=== PATIENT | female | born 1955 | race Caucasian/White ===

== ENCOUNTER 2017-02-20 13:35 | Emergency (ER) | payer OTHER ==
[~2017-02-20] VITALS: Ht 165.1 cm; Wt 145.1 kg
[~2017-02-20 13:35] MED LIST: ASPI-COR81 M1 PO; Atrovent 0.03%30 ML NAS; B-COMPLEX1 CAP PO; BIOTIN10 MG PO; CIPROFLOXACIN500 MG PO; COREG; CYMBALTA; CYMBALTA20 MG PO; CYMBALTA60 MG PO; FISH OIL; FLAGYL500 MG PO; LANTUS100 U/ML; LANTUS100 U/ML SC; LASIX; LASIX40 MG PO; LEVAQUIN750 M1 PO; LINAGLIPTIN; LISINOPRIL; MEGACE40 MG PO; MELATONIN; METFORMIN1000 MG PO; NORVASC10 MG PO; OMEGA 3 FISH O1 EACH PO; PROAIR HFA8.5 GM INH; TOUJEO300 U/ML SC; VICODIN 5/500 505 MG PO; VICTOZA6 MG/ML SC
[2017-02-20 14:24] LABS: HEMOGLOBIN 11.5 g/dl (12.0-16.0); MEAN CELL VOLUME 88.9 fl (81.0-99.0); MEAN CORPUSCULAR HGB 28.4 pg (27.0-31.0); MEAN CORPUSCULAR HGB CONC 31.9 g/dl (33.0-37.0); MEAN PLATELET VOLUME 10.5 fl (9.6-12.3); PLATELET COUNT AUTOMATED 165 10*3/uL (130-400); RED BLOOD COUNT 4.05 10*6/uL (4.10-5.10); RED CELL DISTRI WIDTH 15.5 % (0-14.5); WHITE BLOOD COUNT 8.3 10*3/uL (4.8-10.8)
[2017-02-20 14:40] LABS: ALBUMIN 2.4 gm/dl (3.1-4.5); BILIRUBIN, TOTAL 0.4 mg/dl (0.2-1.0); POTASSIUM 3.8 mmol/L (3.5-5.1); TOTAL PROTEIN 7.2 gm/dL (6.4-8.2)
[2017-02-20 14:43] LABS: BASOPHIL # 0.1 10*3/uL (0-0.1); BASOPHILS 1 % (0-1); LYMPHOCYTE # 1.2 10*3/uL (1.3-4.4); MONOCYTE # 0.5 10*3/uL (0.1-1.0); NEUTROPHIL # 6.5 10*3/uL (2.3-7.9); NEUTROPHILS 78 % (47-73); PLATELET SUFFICIENCY NORMAL (NORMAL); TOTAL CELLS COUNTED 100 #CELLS
[2017-02-20] MEDS ORDERED: ULTRAM50 MG PO (15:18)
[2017-02-20] MEDS ORDERED: ZOVIRAX800 MG PO (15:18)
== END 2017-02-20 15:18 | disposition home or self-care (01) ==
LOC: ED 13:35
PROVIDERS: Nurse Practitioner Family
DX: B02.9 Zoster without complications (principal); Z98.890 Other specified postprocedural states; Z90.710 Acquired absence of both cervix and uterus; Z79.899 Other long term (current) drug therapy; Z79.82 Long term (current) use of aspirin; Z79.4 Long term (current) use of insulin; Z88.0 Allergy status to penicillin; Z88.2 Allergy status to sulfonamides; Z88.5 Allergy status to narcotic agent

== ENCOUNTER 2017-02-22 12:32 | Inpatient (IN) | payer OTHER ==
[~2017-02-22] VITALS: Ht 165.1 cm; Wt 158.4 kg
--- NOTE | ~2017-02-22 | EKG ---
[place], [place] ELECTROCARDIOGRAM REPORT NAME: RICHARD EM UNIT #: [id number] ROOM: [facility] DOCTOR: QUIN MEDLEY MD BIRTHDATE: [birth year] DOS: 02/22/2017 TIME: 1335 hours. FINDINGS: 1. Sinus rhythm with left anterior fascicular block. 2. Poor precordial R-wave progression. 3. Nonspecific T-wave flattening. 4. Abnormal electrocardiogram. QUIN MEDLEY MD CM:EKGRPT:ELECTROCARDIOGRAM REPORT 34 23 QUIN MEDLEY MD
[~2017-02-22 12:32] MED LIST changes: +ULTRAM50 MG PO; +ZOVIRAX800 MG PO
[2017-02-22 12:47] VITALS: BP 137/75
[2017-02-22 13:45] LABS: BASO % 0.2 % (0.0-1.0); EOS # 0.1 10*3/uL (0.0-0.4); EOS % 0.8 % (1.0-4.0); HEMATOCRIT 34.5 % (37.0-47.0); HEMOGLOBIN 11.3 g/dl (12.0-16.0); IG # 0.1 10*3/uL (0.0-0.1); LYMPH # 1.2 10*3/uL (1.3-4.4); MEAN CELL VOLUME 87.1 fl (81.0-99.0); MEAN CORPUSCULAR HGB 28.5 pg (27.0-31.0); MEAN CORPUSCULAR HGB CONC 32.8 g/dl (33.0-37.0); MEAN PLATELET VOLUME 10.5 fl (9.6-12.3); MONO # 0.9 10*3/uL (0.1-1.0); MONO % 7.6 % (3.0-9.0); NEUT # 9.7 10*3/uL (2.3-7.9); NEUT % 80.6 % (47.0-73.0); NUCLEATED RED BLOOD CELL 0.2 % (0.0-0.0); PLATELET COUNT AUTOMATED 242 10*3/uL (130-400); RED BLOOD COUNT 3.96 10*6/uL (4.10-5.10); RED CELL DISTRI WIDTH 15.2 % (0-14.5); WHITE BLOOD COUNT 12.1 10*3/uL (4.8-10.8)
[2017-02-22 13:56] LABS: ALBUMIN 2.3 gm/dl (3.1-4.5); ALKALINE PHOSPHATASE 207 U/L (45-117); BILIRUBIN, TOTAL 0.6 mg/dl (0.2-1.0); BUN 10 mg/dl (7-24); CARBON DIOXIDE 28 mmol/L (21-32); CHLORIDE 98 mmol/L (98-107); EST GLOM FILT AFRICAN AMERICAN > 60 ml/min; GLUCOSE 236 mg/dL (65-99); MAGNESIUM 1.6 mg/dL (1.5-2.1); POTASSIUM 3.6 mmol/L (3.5-5.1); SGOT/AST 69 IU/L (3-35); SGPT/ALT 46 U/L (12-78); SODIUM 137 mmol/L (136-145); TOTAL PROTEIN 7.5 gm/dL (6.4-8.2)
[2017-02-22 14:09] LABS: TROPONIN I < 0.015 ng/ml (<0.045)
[2017-02-22 15:46] VITALS: BP 141/70
[2017-02-22 16:00] VITALS: BP 169/87
[2017-02-22] MEDS ORDERED: CYCLOBENZAPRINE10 MG PO (16:12)
[2017-02-22] MEDS ORDERED: POTASSIUM CHLO20 ME3 PO (16:15)
[2017-02-22 16:20] VITALS: BP 169/87
[2017-02-22 19:01] LABS: CKMB 1.5 ng/ml (0.5-3.6); CPK 122 U/L (26-192)
[2017-02-22 19:04] LABS: TROPONIN I < 0.015 ng/ml (<0.045)
[2017-02-22 20:00] VITALS: BP 132/88; BP 132/91
[2017-02-23] VITALS: BP 138/88
[2017-02-23 00:32] LABS: CKMB 1.6 ng/ml (0.5-3.6); CPK 113 U/L (26-192)
[2017-02-23 00:34] LABS: TROPONIN I < 0.015 ng/ml (<0.045)
[2017-02-23 06:14] LABS: BASO % 0.1 % (0.0-1.0); HEMATOCRIT 36.3 % (37.0-47.0); HEMOGLOBIN 11.7 g/dl (12.0-16.0); IG # 0.2 10*3/uL (0.0-0.1); LYMPH # 0.9 10*3/uL (1.3-4.4); LYMPH % 7.5 % (27.0-41.0); MEAN CELL VOLUME 88.3 fl (81.0-99.0); MEAN CORPUSCULAR HGB 28.5 pg (27.0-31.0); MEAN CORPUSCULAR HGB CONC 32.2 g/dl (33.0-37.0); MEAN PLATELET VOLUME 10.2 fl (9.6-12.3); MONO # 0.6 10*3/uL (0.1-1.0); MONO % 5.2 % (3.0-9.0); NEUT # 10.6 10*3/uL (2.3-7.9); NEUT % 85.6 % (47.0-73.0); NUCLEATED RED BLOOD CELL 0.2 % (0.0-0.0); PLATELET COUNT AUTOMATED 282 10*3/uL (130-400); RED BLOOD COUNT 4.11 10*6/uL (4.10-5.10); RED CELL DISTRI WIDTH 15.4 % (0-14.5); WHITE BLOOD COUNT 12.4 10*3/uL (4.8-10.8)
[2017-02-23 06:27] LABS: CKMB 1.8 ng/ml (0.5-3.6); CPK 101 U/L (26-192)
[2017-02-23 06:40] LABS: TROPONIN I < 0.015 ng/ml (<0.045)
[2017-02-23 06:42] LABS: BUN 15 mg/dl (7-24); CARBON DIOXIDE 33 mmol/L (21-32); CHLORIDE 97 mmol/L (98-107); CHOLESTEROL 184 mg/dL (<200); EST GLOM FILT AFRICAN AMERICAN > 60 ml/min; FREE T4 1.48 ng/dl (0.76-1.46); GLUCOSE 372 mg/dL (65-99); HDL CHOLESTEROL 50 mg/dl (40-60); LDL CHOLESTEROL 117 mg/dL (9-159); MAGNESIUM 1.8 mg/dL (1.5-2.1); PHOSPHOROUS 3.5 mg/dL (2.5-4.9); POTASSIUM 3.6 mmol/L (3.5-5.1); SODIUM 137 mmol/L (136-145); TRIGLYCERIDES 86 mg/dl (<150); VLDL CHOLESTEROL 17 mg/dL (6-40)
[2017-02-23 06:49] LABS: THYROID STIM HORMONE (HS) 0.455 uIU/ml (0.358-4.75)
[2017-02-23 07:03] LABS: HEMOGLOBIN A1c 9.1 % (4.8-5.6)
[2017-02-23 08:00] VITALS: BP 132/74
== END 2017-02-23 11:03 | disposition left against medical advice (07) | DRG 291 ==
LOC: ED 12:32 → EDHOLD 15:04 → 5E 15:32
PROVIDERS: Internal Medicine; Nurse Practitioner Family
DX: I11.0 Hypertensive heart disease with heart failure (principal); E43 Unspecified severe protein-calorie malnutrition; Z68.43 Body mass index [BMI] 50.0-59.9, adult; B02.9 Zoster without complications; E11.65 Type 2 diabetes mellitus with hyperglycemia; E66.01 Morbid (severe) obesity due to excess calories; F32.9 Major depressive disorder, single episode, unspecified; Z85.42 Personal history of malignant neoplasm of other parts of uterus; Z90.710 Acquired absence of both cervix and uterus; Z82.49 Family history of ischemic heart disease and other diseases of the circulatory system; Z88.0 Allergy status to penicillin; Z88.1 Allergy status to other antibiotic agents; Z88.5 Allergy status to narcotic agent; Z88.2 Allergy status to sulfonamides; I50.9 Heart failure, unspecified; D72.820 Lymphocytosis (symptomatic); D64.9 Anemia, unspecified

== ENCOUNTER → 2018-10-12 | Outpatient (CLI) | payer OTHER ==
[~2018-10-12] MED LIST changes: +CYCLOBENZAPRINE10 MG PO; +POTASSIUM CHLO20 ME3 PO
== END | disposition home or self-care (01) ==
LOC: WOUNDCARE 02:14
DX: I87.311 Chronic venous hypertension (idiopathic) with ulcer of right lower extremity (principal); L97.211 Non-pressure chronic ulcer of right calf limited to breakdown of skin; L97.312 Non-pressure chronic ulcer of right ankle with fat layer exposed; I10 Essential (primary) hypertension; E66.01 Morbid (severe) obesity due to excess calories; Z68.43 Body mass index [BMI] 50.0-59.9, adult

== ENCOUNTER → 2018-12-25 | Outpatient (CLI) | payer OTHER ==
[~2018-12-25] MED LIST changes: +ATIVAN0.5 MG PO; +BUMETANIDE1 MG PO; +CIPRO PO; +DIGOX125 MCG PO; +DOXYCYCLINE100 MG PO; +LISINOPRIL5 MG PO; +METOPROLOL SUCC50 M1 PO; +Percocet 325 MG1 TAB PO; +TOUJEO MAX300 UNIT/1 SQ; -TOUJEO300 U/ML SC; +XARELTO15 M1 PO
== END | disposition home or self-care (01) ==
LOC: WOUNDCARE 02:06
DX: I87.313 Chronic venous hypertension (idiopathic) with ulcer of bilateral lower extremity (principal); E11.621 Type 2 diabetes mellitus with foot ulcer; L97.412 Non-pressure chronic ulcer of right heel and midfoot with fat layer exposed; L97.422 Non-pressure chronic ulcer of left heel and midfoot with fat layer exposed; E11.622 Type 2 diabetes mellitus with other skin ulcer; L97.211 Non-pressure chronic ulcer of right calf limited to breakdown of skin; L97.311 Non-pressure chronic ulcer of right ankle limited to breakdown of skin; I10 Essential (primary) hypertension; E66.01 Morbid (severe) obesity due to excess calories; Z90.710 Acquired absence of both cervix and uterus; Z68.43 Body mass index [BMI] 50.0-59.9, adult

== ENCOUNTER 2019-03-29 20:26 | Emergency (ER) | payer OTHER ==
[~2019-03-29] VITALS: Ht 165.1 cm; Wt 112.5 kg
--- NOTE | ~2019-03-29 | EKG ---
[place], [place] ELECTROCARDIOGRAM REPORT NAME: RICHARD EM UNIT #: [id number] ROOM: DOCTOR: EPIPHANY DRAFT REPORT BIRTHDATE: [birth year] [facility] Test Date: 2019-03-29 Test Time: 20:52:49 Pat Name: RICHARD EM Department: Room: Gender: F Preparation Operator: : 1955 Requested By: MARGARET SAUCEDO DNP Order Number: [id number] Reading MD: Ho Bonner MD Measurements Intervals [place] Rate: 81 P: [place]: QRS: -55 QRSD: 143 T: 119 QT: 428 QTc: 497 Interpretive Statements Atrial fibrillation Nonspecific IVCD with LAD Inferior infarct, old Artifact in lead(s) I,II,III,aVR,aVL,aVF,V1,V2 Compared to ECG 02/14/2019 07:46:45 Intraventricular conduction delay now present Myocardial infarct finding now present Left bundle-branch block no longer present Electronically Signed On 03-30-2019 4:15:43 PDT by Ho Bonner MD CM:EKGRPT:ELECTROCARDIOGRAM REPORT 51 [id number] MARGARET SAUCEDO DNP EPIPHANY DRAFT REPORT MARGARET SAUCEDO DNP
[~2019-03-29 20:26] MED LIST changes: -CIPRO PO
[2019-03-29 21:17] LABS: BASO # 0.1 10*3/uL (0.0-0.1); BASO % 0.6 % (0.0-1.0); EOS # 1.1 10*3/uL (0.0-0.4); EOS % 7.8 % (1.0-4.0); HEMATOCRIT 29.1 % (37.0-47.0); HEMOGLOBIN 8.7 g/dl (12.0-16.0); LYMPH # 1.3 10*3/uL (1.3-4.4); LYMPH % 9.2 % (27.0-41.0); MEAN CELL VOLUME 85.3 fl (81.0-99.0); MEAN CORPUSCULAR HGB 25.5 pg (27.0-31.0); MEAN CORPUSCULAR HGB CONC 29.9 g/dl (33.0-37.0); MEAN PLATELET VOLUME 9.6 fl (9.6-12.3); MONO # 0.8 10*3/uL (0.1-1.0); MONO % 5.4 % (3.0-9.0); NEUT # 10.7 10*3/uL (2.3-7.9); NEUT % 76.6 % (47.0-73.0); PLATELET COUNT AUTOMATED 420 10*3/uL (130-400); RED BLOOD COUNT 3.41 10*6/uL (4.10-5.10); RED CELL DISTRI WIDTH 18.4 % (0-14.5)
[2019-03-29 21:33] LABS: ALBUMIN 1.9 gm/dl (3.1-4.5); ALKALINE PHOSPHATASE 112 U/L (45-117); BUN 64 mg/dl (7-24); CHLORIDE 101 mmol/L (98-107); CREATININE 2.26 mg/dL (0.55-1.02); LIPASE 113 U/L (73-393); POTASSIUM 3.6 mmol/L (3.5-5.1); SGOT/AST 16 IU/L (3-35); SODIUM 138 mmol/L (136-145); TOTAL PROTEIN 8.4 gm/dL (6.4-8.2)
[2019-03-29 21:36] LABS: SGPT/ALT < 6 U/L (12-78); TROPONIN I < 0.015 ng/ml (<0.045)
[2019-03-29 21:37] LABS: ACT PARTIAL THROMBO TIME 31.1 SECONDS (20.0-32.1); INTERNATIONAL NORM RATIO 1.1 (2.0-3.5)
[2019-05-21] MEDS ORDERED: LASIX40 MG PO (09:08)
[2019-05-21] MEDS ORDERED: FLAGYL500 MG PO (09:10)
[2019-05-21] MEDS ORDERED: CIPRO PO (09:10)
== END 2019-03-29 23:59 | disposition left against medical advice (07) ==
LOC: ED 20:26
PROVIDERS: Nurse Practitioner Family
DX: S01.01XA Laceration without foreign body of scalp, initial encounter (principal); N17.9 Acute kidney failure, unspecified; R42 Dizziness and giddiness; I48.91 Unspecified atrial fibrillation; I11.0 Hypertensive heart disease with heart failure; I50.9 Heart failure, unspecified; E11.9 Type 2 diabetes mellitus without complications; Z88.0 Allergy status to penicillin; Z88.2 Allergy status to sulfonamides; Z91.048 Other nonmedicinal substance allergy status; Z88.5 Allergy status to narcotic agent; Z88.1 Allergy status to other antibiotic agents; Z88.8 Allergy status to other drugs, medicaments and biological substances; Z79.4 Long term (current) use of insulin; Z79.899 Other long term (current) drug therapy; Z90.710 Acquired absence of both cervix and uterus; W18.39XA Other fall on same level, initial encounter; Y93.89 Activity, other specified; Y92.090 Kitchen in other non-institutional residence as the place of occurrence of the external cause; Y99.8 Other external cause status

== ENCOUNTER → 2019-05-21 | Outpatient (CLI) | payer OTHER ==
[2019-05-21] VITALS (9 sets, daily range): BP systolic 105–130; BP diastolic 50–73
[~2019-05-21] MED LIST changes: +CIPRO PO
== END | disposition home or self-care (01) ==
LOC: TRNFUSION 00:31
DX: D64.9 Anemia, unspecified (principal)

== ENCOUNTER 2019-09-06 16:25 | Inpatient (IN) | payer OTHER ==
[~2019-09-06] VITALS: Ht 165.1 cm; Wt 126.8 kg
[2019-09-06] VITALS (26 sets, daily range): BP systolic 75–120; BP diastolic 31–98
--- NOTE | ~2019-09-06 | CON ---
[place], [place] REPORT OF CONSULTATION NAME: RICHARD EM [facility] #: [id number] UNIT #: [id number] ROOM: [facility] DOCTOR: AWA LICEA,CADEN BIRTHDATE: [birth year] DOS: 09/07/2019 REASON FOR CONSULTATION: Hypotension, atrial fibrillation. HISTORY OF PRESENT ILLNESS: The patient is a 64-year-old patient with history of persistent atrial fibrillation, diabetes, chronic kidney disease, heart failure, presented to the hospital after she had unwitnessed fall at home. She was admitted because of hypotensive shock due to sepsis and also atrial fibrillation. The patient was slightly drowsy and slightly confused and the history was obtained from the chart and nursing staff. There is no family at bedside. Apparently, there is no chest pain or palpitations at home. No orthopnea or PND. No palpitations, but the patient did have some short of breath. REVIEW OF SYSTEMS: Review of 10 systems is limited due to the patient's condition and history and symptoms were obtained from the chart. PAST MEDICAL HISTORY: 1. Paroxysmal atrial fibrillation. 2. Chronic kidney disease. 3. Hypertension. 4. Systolic heart failure. 5. Chronic venous stasis dermatitis. 6. Diabetes type 2. 7. Uterine cancer. PAST SURGICAL HISTORY: History of cataract surgery, hysterectomy and . SOCIAL HISTORY: The patient does not smoke, does not drink, does not use illicit drugs. FAMILY HISTORY: Nil contributory due to her age. Father at the age of 69 from heart failure, had a history of CAD and bypass surgery. Mother has heart failure and renal failure and at age of 64. ALLERGIES: Reviewed. HOME MEDICATIONS: Reviewed. PHYSICAL EXAMINATION: VITAL SIGNS: Blood pressure 103/44, heart rates are between 110-120, respiratory rate 18, weight 126.8 kg, BMI 46.3. GENERAL: Alert, comfortable, in no acute distress. The patient is drowsy and sleeping. NECK: No distention, no carotid bruit. CHEST: Symmetrical. LUNGS: A few scattered rhonchi. Fair air entry bilaterally. HEART: Irregularly irregular, grade 1/6 systolic murmur. ABDOMEN: Obese, nontender. Bowel sounds normal. EXTREMITIES: Showed trace 2+ plus edema with some erythema and also positive [place], [place] REPORT OF CONSULTATION NAME: RICHARD EM UNIT #: [id number] ROOM: [facility] DOCTOR: AWA LICEA,CADEN BIRTHDATE: [birth year] mild cellulitis. Distal pulses are unable to palpate. SKIN: Warm and moist. No cyanosis. NEUROLOGIC: Unable to assess due to the patient's mental status. RECTAL: Deferred. GENITOURINARY: Deferred. PSYCHIATRIC: Unable to assess due to the patient's mental status. REVIEW OF THE DIAGNOSTIC TESTS: EKG, CBC, chemistry and imaging studies reviewed. WBC was , hemoglobin is 12.9, platelet 101,000. INR 2.1, creatinine 3.95. Her digoxin levels are 2.38. Cardiac troponins are negative x 2. IMPRESSION: 1. Hypotensive shock, likely due to sepsis. 2. Fall, unwitnessed, no true syncope. 3. Atrial fibrillation with occasional rapid ventricular rate. 4. Chronic systolic heart failure with ejection fraction 40%. 5. Acute on chronic kidney disease. 6. Bilateral cellulitis. RECOMMENDATIONS: 1. Continue inotropic support and wean as her blood pressure tolerates. 2. The patient received digoxin last night. Currently, her digoxin levels are high. Hence, I would like to hold on giving any further digoxin. 3. The patient was not on anticoagulation at home due to high risk of bleeding. 4. A 2D echo was ordered and pending. 5. Overall prognosis is poor. The patient's condition is critical. 6. No family at bedside at the time of my examination. 7. Resume her home cardiac medications as her blood pressure tolerates. 8. No further cardiac testing except the 2D echo at this time. CADEN BILLINGS MD CM:CONSTR:REPORT OF CONSULTATION 29 09/08/19821 interface
--- NOTE | ~2019-09-06 | EKG ---
[place], [place] ELECTROCARDIOGRAM REPORT NAME: RICHARD EM UNIT #: [id number] ROOM: [facility] DOCTOR: OSWALDO DRAFT REPORT BIRTHDATE: [birth year] [facility] Test Date: 2019-09-06 Test Time: 17:31:14 Pat Name: RICHARD EM Department: Room: [facility] Gender: F Director Risk: : 1955 Requested By: MIREYA GREWAL Order Number: [id number] Reading MD: Florentino Schaffer Measurements Intervals [place] Rate: 92 P: SD: QRS: 263 QRSD: 139 T: QT: 454 QTc: 562 Interpretive Statements Atrial fibrillation Nonspecific IVCD with LAD Anterior infarct, old Nonspecific T abnormalities, lateral leads Minimal ST elevation, lateral leads Compared to ECG 03/29/2019 20:52:49 T-wave abnormality now present ST (T wave) deviation now present Myocardial infarct finding still present Electronically Signed On 09-08-2019 9:34:00 PST by Florentino Schaffer CM:EKGRPT:ELECTROCARDIOGRAM REPORT 1731 0934 MIREYA CHACON DRAFT REPORT MIREYA GREWAL MD
--- NOTE | ~2019-09-06 | EKG ---
[place], [place] ELECTROCARDIOGRAM REPORT NAME: RICHARD EM UNIT #: [id number] ROOM: [facility] DOCTOR: OSWALDO DRAFT REPORT BIRTHDATE: [birth year] [facility] Test Date: 2019-09-07 Test Time: 06:31:46 Pat Name: RICHARD EM Department: Room: [place] [address] Gender: F Box Office Attendant: Aminah Krishna : 1955 Requested By: KATTY GRAJEDA Order Number: [id number] Reading MD: Florentino Schaffer Measurements Intervals [place] Rate: 127 P: 65 MT: 106 QRS: -77 QRSD: 136 T: 116 QT: 345 QTc: 502 Interpretive Statements Sinus tachycardia Nonspecific IVCD with LAD Inferior infarct, old Extensive anterior infarct, old Compared to ECG 03/29/2019 20:52:49 Atrial fibrillation no longer present Myocardial infarct finding still present Electronically Signed On 09-08-2019 9:37:42 PST by Florentino Schaffer CM:EKGRPT:ELECTROCARDIOGRAM REPORT 0631 0937 KATTY MOLINA DRAFT REPORT KATTY GRAJEDA DO
--- NOTE | ~2019-09-06 | PROC NOTE ---
[place], [place] PROCEDURE NOTE NAME: [facility] [id number] UNIT #: [id number] ROOM: [facility] DOCTOR: FROY NAVA DO BIRTHDATE: [birth year] DOS: 09/07/2019 PROCEDURE: Arterial line placement. PROCEDURE NOTE: This is a 64-year-old female, currently admitted on the hospitalist service, being treated for septic shock. I was consulted to insert an arterial line for better blood pressure monitoring and arterial line was placed in the right radial artery under ultrasound guidance. Sterile technique was maintained. There were no complications during the procedure. FROY NAVA DO CM:PROCNOTE:PROCEDURE NOTE 1048 [id number] FROY NAVA DO
--- NOTE | ~2019-09-06 | EKG ---
[place], [place] ELECTROCARDIOGRAM REPORT NAME: RICHARD EM UNIT #: [id number] ROOM: [facility] DOCTOR: OSWALDO DRAFT REPORT BIRTHDATE: [birth year] [facility] Test Date: 2019-09-06 Test Time: 19:08:06 Pat Name: RICHARD EM Department: Room: [place] [address] Gender: F Medical [facility] Health Services Manager: : 1955 Requested By: CHRISTINE SIMEON Order Number: [id number] Reading MD: Florentino Schaffer Measurements Intervals [place] Rate: 93 P: [place]: QRS: 244 QRSD: 118 T: 97 QT: 386 QTc: 481 Interpretive Statements Atrial fibrillation LAD, consider left anterior fascicular block Anterolateral infarct, age indeterminate Baseline wander in lead(s) V1 Compared to ECG 03/29/2019 20:52:49 Intraventricular conduction delay no longer present Myocardial infarct finding still present Electronically Signed On 09-08-2019 9:34:47 PST by Florentino Schaffer CM:EKGRPT:ELECTROCARDIOGRAM REPORT [id number] CHRISTINE CHACON DRAFT REPORT CHRISTINE SIMEON
--- NOTE | ~2019-09-06 | CON ---
[place], [place] REPORT OF CONSULTATION NAME: RICHARD EM [facility] #: [id number] UNIT #: [id number] ROOM: [facility] DOCTOR: NOMAN DECKER MD BIRTHDATE: [birth year] DOS: 09/07/2019 PULMONARY CONSULTATION, EVALUATION, AND MANAGEMENT CONSULTATION REQUESTED BY: Hospitalist services. REASON FOR CONSULTATION: For assessment of the hypotension, change in mental status and others. History is limited from the patient could not be accurately obtained due to the current ongoing medical illnesses. The majority of the history obtained with medical record, this hospitalization and previous records review. HISTORY OF PRESENT ILLNESS: This is a 64-year-old white female patient who has been known with multiple medical problems. The patient in the past has been brought to the hospital as the patient has been noted with progressive confusional status with increased sleepiness. The patient has been brought to the hospital for further assessment. Upon assessment, she has been noted with hyperglycemia as well. The blood glucose has been reported ____as well. She has been noted with hypotension and has been treated with intravenous flow, lactic acid was also noted elevated. She has been given the norepinephrine and later vasopressin therapy was added to the treatment. This morning, the patient has been noted comfortably resting on the bed with the need of oxygen supplementation 3 liters nasal cannula. She does open her eyes to vocal commands, but does not have good verbal communication to understand the questions or answer the questions. Not noted with any distress. The patient has tachypnea, has not been noted any audible wheezing or symptoms of cough. REVIEW OF SYSTEMS: Could not be completed since the patient is noted with current change in mental status. PAST MEDICAL HISTORY: Noted, 1. History of permanent atrial fibrillation. 2. The patient with chronic venous stasis pigmentation of the lower extremity. 3. Chronic kidney disease. 4. Morbid obesity. 5. Type 2 diabetes mellitus. 6. History of reported hypercoagulable status, details unknown. 7. History of heart failure with reduced ejection fraction noted a left ventricular ejection fraction, global hypokinesia in 03/2019 echocardiogram. 8. History of uterine cancer. PAST SURGICAL HISTORY: Reported as; 1. Complete hysterectomy. 2. Cataract extraction with lens implantation. 3. [place] teeth removal. 4. . SOCIAL HISTORY: The patient lives at home. She has not reported any history of tobacco, alcohol or illicit drugs. [place], [place] REPORT OF CONSULTATION NAME: RICHARD EM UNIT #: [id number] ROOM: [facility] DOCTOR: NATALIYA TAMAYO MD,NOMAN BIRTHDATE: [birth year] FAMILY HISTORY: The patient's father with complications of coronary artery disease. The mother as well with complications of congestive heart failure and renal failure. HOME MEDICATIONS: Listed as Percocet, Flexeril, doxepin, Cymbalta, Lasix 40 mg daily, lisinopril, lorazepam, metoprolol, metronidazole, and Xarelto. CURRENT MEDICATIONS: Which were administered at this hospitalization were noted as norepinephrine, vasopressin, IV meropenem, vancomycin, and some other medications. DRUG ALLERGIES: REPORTED : 1. PENICILLIN. 2. SULFA DRUGS. 3. KEFLEX. 4. ELAVIL. 5. CODEINE. PHYSICAL EXAMINATION: GENERAL: This is a 64-year-old female patient who has been noted with opening her eyes to vocal with commands, otherwise keep her eyes closed without any distress in the ICU. The height recorded by the nursing staff on admission 5 feet 5 inches, weight of 279 pounds, BMI of 46.5. VITAL SIGNS: For the patient, which have been recorded on this admission were noted as normal temperature since admission, respiratory rate ranged between 14-20. Heart rate noted with tachycardia ranging between 130 - 118. The blood pressure ranges between ____. The last mean pressure was recorded as 70, at about 9:15. HEENT: Severe dryness of oral mucosa was noted. NECK: Supple. Head was atraumatic. CARDIOVASCULAR SYSTEM: S1, S2 is audible. LUNGS: Noted decreased breath sounds in the lungs bilaterally. There were no wheezing or crackles. ABDOMEN: Soft with chronic morbid obesity. Bowel sounds present. There was no tenderness. EXTREMITIES: Noted severe redness of the lower extremities bilaterally with severe edema as well with some open areas as well. MUSCULOSKELETAL: Without acute deformities. CENTRAL NERVOUS SYSTEM: Limited exam. Assessment with the changes in mental status noted. LABORATORY DATA: PTT on 09/06/2019 were noted 65, which was elevated. The CMP noted as BUN 53 and creatinine 3.94. AST was noted with mildly elevated at 46, alkaline phosphatase 279 with albumin 1.4. Anion gap was noted as 17. Lactic acid 3.6, variably elevated later on. The PT/INR were noted 2.1 as well that was done yesterday on admission CBC that was done later on, WBC count 23.8, hemoglobin and hematocrit normal, platelet count 89,000. Troponins were noted as normal 3 sets. Chest x-ray shows evidence of elevation of right hemidiaphragm, pleural fluid noted with increased interstitial edema. Blood culture, which was done on 09/06/2019, the patient noted gram-positive cocci in [place], [place] REPORT OF CONSULTATION NAME: RICHARD EM UNIT #: [id number] ROOM: [facility] DOCTOR: NATALIYA TAMAYO MD,NOMAN BIRTHDATE: [birth year] pairs and chains. CBC that was done on 09/07/2019; WBC count 34.7, hemoglobin and hematocrit normal, platelet count 110,000. CT scan of the abdomen and pelvis was also completed on this patient in the Emergency Room and the finding was reported as evidence of pleural fluid, area of compression atelectasis lower lungs. The findings of the abdomen was reported diffuse edema, retroperitoneal and pelvic adenopathy new since as compared with the previous examination. Nonobstructive right nephrolithiasis, hepatic steatosis and splenomegaly was also reported. Comparison of the CT scan was done 10/04/2012. A CT scan of the chest that was just completed. I did review at 8:25 a.m. noted with findings of moderate to large right pleural fluid and small left pleural fluid, area of compression atelectasis. IMPRESSION: 1. The patient will be currently admitted to the hospital with change in mental status, multifactorial, possibility of elevation of CO2 with metabolic acidosis causing confusion, sepsis with Gram-positive cocci bacteremia was also noted. 2. The patient with anasarca picture congestive heart failure with acute heart failure with reduced ejection fraction as well. 3. Lactic acidosis, multifactorial hypoperfusion related with history of heart failure, reduced ejection fraction, possibly some related to sepsis as well. 4. Mild relative hypoglycemia, most likely occurring because of the current acute sepsis. The patient had hypoperfusion. 5. Morbid obesity. 6. Large pleural fluid was noted compression atelectasis. 7. History of past Clostridium difficile colitis. 8. Elevated anion gap related to the lactic acidosis as well. 9. Source of the current gram-positive cocci in pair, which were noted, would be considered as Enterococcus, source could be considered from the skin, GI tract or urogenital tract. 10. Morbid obesity with clinical suspicion of obstructive sleep apnea disorder as well, which has not been previously diagnosed. 11. History of type 2 diabetes mellitus. 12. Acute kidney injury related multifactorial. The patient with hypoperfusion, sepsis and congestive heart failure combination. 13. Abnormal coagulopathy related to Xarelto with a drug toxicity with elevated level because of the acute kidney injury would be considered very likely cause of coagulopathy. 14. Lymphadenopathy noted in the retroperitoneal area, rule out malignancy, lymphoma. Other etiology later on as well after discharge from the hospital. PLAN OF MANAGEMENT: Minimize the use of the antibiotic as well based on the culture results. Follow the culture results and de-escalation of antibiotic should be done. Vancomycin should be considered for the continued for the current bacteremia. Urine culture should be obtained. Arterial blood gas was ordered to assess the acid-base disorder as well and rule out hypercapnia. If the patient will be noted hypercapnia certainly BiPAP would be started. Close monitoring of the patient's multiorgan system failure as well. The patient's condition is considered very critical at the present time with current ongoing several illnesses. Usual care. Cardiology consultation will be necessary. Diurese the patient could be considered with close monitoring of BUN and [place], [place] REPORT OF CONSULTATION NAME: RICHARD EM UNIT #: [id number] ROOM: [facility] DOCTOR: NATALIYA TAMAYO MD,NOMAN BIRTHDATE: [birth year] creatinine, also obtain Nephrology services consultation, continuing and not restart as Xarelto as well. Monitor for any abnormal bleeding. Supportive care. Total time pulmonary care critical care evaluation and management noted the patient was 45 minutes. NOMAN AN MD CM:CONSTR:REPORT OF CONSULTATION 1057 09/07/19 2125 interface
[~2019-09-06 16:25] MED LIST changes: +PERCOCET 10-321 EACH PO; -Percocet 325 MG1 TAB PO
--- NOTE | 2019-09-06 16:30 | NUR ---
NURSE REPORT TO AWAIS FOR CONTINUATION OF CARE.
--- NOTE | 2019-09-06 16:45 | NUR ---
REPEAT BSBS *AFTER* AN ORAL GLUCOSE AND CONTAINER OF O.J. HERE IS 38. PRIOR ONE WAS 43. AFTER MULTIPKLE ATTEMPTS, IV INSERTION WAS SUCCESSFUL AND IV DEXTROSE ORDER NOW RECEIVED. PT ATTACHED TO ALL MONITORING DEVICES. NO CHANGE IN MENTAL STATUS OR COMPLAINT.
--- NOTE | 2019-09-06 17:14 | NUR ---
BG 76 DR. GREWAL MADE AWARE
--- NOTE | 2019-09-06 17:45 | NUR ---
BG RECHECKED 48 DR -CARMINA MADE AWARE AND ORDERING ANOTHER AMP OF DEXTROSE
[2019-09-06 18:00] LABS: ALBUMIN 1.4 gm/dl (3.1-4.5); ALKALINE PHOSPHATASE 279 U/L (45-117); BUN 53 mg/dl (7-24); CHLORIDE 104 mmol/L (98-107); CREATININE 3.94 mg/dL (0.55-1.02); POTASSIUM 3.7 mmol/L (3.5-5.1); SGOT/AST 46 IU/L (3-35); SGPT/ALT 6 U/L (12-78); SODIUM 136 mmol/L (136-145); TOTAL PROTEIN 6.4 gm/dL (6.4-8.2)
[2019-09-06 18:08] LABS: TROPONIN I < 0.015 ng/ml (<0.045)
--- NOTE | 2019-09-06 18:24 | NUR ---
BG CHECKED 72 DR CARMINA AT BEDSIDE AND AWARE
[2019-09-06 18:28] LABS: INTERNATIONAL NORM RATIO 2.1 (2.0-3.5)
[2019-09-06 19:00] LABS: HEMATOCRIT 37.8 % (37.0-47.0); MEAN CELL VOLUME 85.7 fl (81.0-99.0); MEAN CORPUSCULAR HGB 27.2 pg (27.0-31.0); MEAN CORPUSCULAR HGB CONC 31.7 g/dl (33.0-37.0); PLATELET COUNT AUTOMATED 89 10*3/uL (130-400); RED BLOOD COUNT 4.41 10*6/uL (4.10-5.10); RED CELL DISTRI WIDTH 18.8 % (0-14.5); WHITE BLOOD COUNT 23.8 10*3/uL (4.8-10.8)
[2019-09-06 19:04] LABS: TOTAL CELLS COUNTED 100 #CELLS
[2019-09-06 19:05] LABS: TOXIC GRANULATION SLIGHT; VACUOLATION OF NEUTROPHILS SLIGHT
[2019-09-06 19:06] LABS: PLATELET SUFFICIENCY LOW (NORMAL)
--- NOTE | 2019-09-06 20:13 | NUR ---
levophed titrated to 8mcg/min. bp 75/35
--- NOTE | 2019-09-06 20:35 | NUR ---
TITRATED LEVEPHED TO 12 MCG/MIN BP 79/44
--- NOTE | 2019-09-06 20:45 | NUR ---
PER SISTER DM AND PT REFUSING MORE PICTURES TO BE TAKEN. PT HAVING A LOT OF PAIN AND DOES NOT WANT MORE PHOTOS
--- NOTE | 2019-09-06 21:40 | NUR ---
A 64, admitted to [facility]U, under the services of KATTY Quintero DO with a diagnosis of Septic shock. Chief complaint is weakness, low blood sugar, fall, leg wounds. Patient arrived via stretcher from ER. Monitor applied. Initial assessment completed. Vital signs taken and recorded. KATTY QUINTERO DO notified of admission to the unit. Orders received. See assessment for past medical history, medications and allergies. Patient and/or family oriented to unit. [facility] visitation policy reviewed. Clothing/patient valuable form completed. MARIAMA MATHUR
--- NOTE | 2019-09-06 22:15 | NUR ---
ATTEMPTING TO EXAMINE WOUNDS AND BUTTOCKS ARE MET WITH RESISTANCE PT IS YELLING AND PUSHING AGAINST RAILS WHILE SAYING "NO, LEAVE ME ALONE." WILL ATTEMPT REASSESSMENT LATER.
[2019-09-06] MEDS ORDERED: VANCOMYCIN HCL250 MG PO (22:23)
[2019-09-06] MEDS ORDERED: LORAZEPAM0.5 MG PO (22:24)
--- NOTE | 2019-09-06 22:24 | NUR ---
DR BILLINGS'S ANSWERING SERVICE GIVEN INFORMATION FOR CONSULT.
[2019-09-06] MEDS ORDERED: FUROSEMIDE40 MG PO (22:25)
[2019-09-06] MEDS ORDERED: PANTOPRAZOLE SO40 MG PO (22:25)
[2019-09-06] MEDS ORDERED: DIGOXIN125 MCG PO (22:26)
--- NOTE | 2019-09-06 22:28 | NUR ---
DR AN NOTIFIED OF CONSULT. NO NEW ORDERS RECEIVED.
[2019-09-06] MEDS ORDERED: CYMBALTA60 MG PO (22:29)
[2019-09-06] MEDS ORDERED: ASPIRIN LOW DOS81 MG PO (22:32)
[2019-09-06] MEDS ORDERED: METOLAZONE5 MG PO (22:34)
[2019-09-06] MEDS ORDERED: NYSTATIN OINTME30 GM T (22:36)
[2019-09-06] MEDS ORDERED: K-TAB20 MEQ PO (22:36)
--- NOTE | 2019-09-06 22:39 | NUR ---
PT. HAD OUTDATED LIST OF MEDICATIONS PROVIDED BY FAMILY, COMPARED TO ADRYAN JOHN FILLED PERSCRIPTIONS SINCE August. LIST IS UPDATED TO THE BEST OF NURSES ABILITY UNTIL CLARIFICATION IN THE AM WITH PHARMACY.
[2019-09-07] VITALS (96 sets, daily range): BP systolic 70–133; BP diastolic 26–73
--- NOTE | 2019-09-07 | NUR ---
OK TO USE LT IJ MLC. DR GRAJEDA HERE AND AWARE OF AFIB WITH RVR IN 130'S. PT DOZING. ATIVAN GIVEN WITH CENTRAL LINE INSERTION WAS EFFECTIVE FOR PT'S AGITATION AND GRABBING AND SWINGING DURING PROCEDURE. SHE IS DOZING AT PRESENT TIME.
--- NOTE | 2019-09-07 01:57 | NUR ---
LEVOPHED TITRATED UP TO 13MICS/MIN.
--- NOTE | 2019-09-07 01:58 | NUR ---
DR GRAJEDA HERE. UPDATED ON PT CONDITION. WE ARE NOT TO GIVE THE LITER ON NORMAL SALINE AND LITER OF D5W THAT WAS ORDERED BY ER PHYSICIAN IN EMERGENCY DEPT.
--- NOTE | 2019-09-07 02:34 | NUR ---
MAP WAS 48. LEVOPHED TITRATED UP TO 14 MCG/MIN. HR 110'S. RR 19/MIN. PULSE OX 99% ON NC3. PT APPEARS TO BE SLEEPING.
--- NOTE | 2019-09-07 03:24 | NUR ---
COMPLETE BATH AND BED LINEN CHANGE DONE.
--- NOTE | 2019-09-07 03:43 | NUR ---
DR GRAJEDA NOTIFIED OF POSITIVE BLOOD CULTURES.
--- NOTE | 2019-09-07 04:17 | NUR ---
LEVOPHED TITRATED UP TO 15 MICS FOR BP 100/33 (55). SHE IS SLEEPING. HR 110'S, PULSE OX 100%, RR 19.
[2019-09-07 04:55] LABS: ALBUMIN 1.5 gm/dl (3.1-4.5); CREATININE 3.95 mg/dL (0.55-1.02); PHOSPHOROUS 4.1 mg/dL (2.5-4.9); POTASSIUM 3.5 mmol/L (3.5-5.1); TOTAL PROTEIN 6.7 gm/dL (6.4-8.2)
--- NOTE | 2019-09-07 05:11 | NUR ---
RICHARD EM [id number] Please refer to the physician's history and physical for past medical history, comorbid conditions, and allergies. Diagnosis: SEPTIC SHOCK PNEUMONIA Zhen Score: 14,MODERATE RISK WOUND DESCRIPTIONS: Wound Number: 1 Location of the wound: left plantar aspect of heel Type of wound: unstageable Thickness: Full Size: 4.0cm x 4.5cm x <0.1cm Tunneling: none Undermining: none Sinus Tract: none Presence of Exudate: none Amount: None Color: Black Odor: None Periwound Skin Appearance: Erythema Wound edges: approximated Pain (associated with wound): tender to touch How does patient state this happened? pt unable to state how this happened Wound Number: 2 Location of the wound: top of left foot Type of wound: DTI Size: 0.6cm x 0.5cm x <0.1cm Tunneling: none Undermining: none Sinus Tract: none Presence of Exudate: none Amount: None Color: Purple, dark red Odor: None Periwound Skin Appearance: Erythema Wound edges: approximated Pain (associated with wound): tender to touch How does patient state this happened? pt unable to state how this happened Wound Number: 3 Location of the wound: plantar aspect of left foot Type of wound: unstageable Thickness: Full Size: 3.5cm x 4.5cm x 0.5cm Tunneling: none Undermining: none Sinus Tract: none Presence of Exudate: Serosanguineous Amount: Light Color: Brown, yellow, red Odor: None Periwound Skin Appearance: Erythema Wound edges: approximated Pain (associated with wound): tender to touch How does patient state this happened? pt unable to state how this happened Wound Number: 4 Location of the wound: plantar aspect of right foot Type of wound: unstageable Thickness: Full Size: 9.7cm x 4.6cm x 0.2cm Tunneling: none Undermining: none Sinus Tract: none Presence of Exudate: Serosanguineous Amount: Light Color: Black, yellow, red Odor: None Periwound Skin Appearance: Erythema Wound edges: approximated Pain (associated with wound): tender to touch How does patient state this happened? pt unable to state how this happened Wound Number: 5 Location of the wound: top right foot Type of wound: unstageable Thickness: Full Size: 1.0cm x 1.0cm x 0.2cm Tunneling: none Undermining: none Sinus Tract: none Presence of Exudate: Serosanguineous Amount:Light Color: yellow, red Odor: None Periwound Skin Appearance: Erythema Wound edges: approximated Pain (associated with wound): tender to touch How does patient state this happened? pt unable to state how this happened Wound Number: 6 Location of the wound: right 4th toe Type of wound: unstageable Thickness: Full Size: 1.0cm x 2.2cm x 0.1cm Tunneling: none Undermining: none Sinus Tract: none Presence of Exudate: Serosanguineous Amount: Light Color: yellow, red Odor: None Periwound Skin Appearance: Erythema Wound edges: approximated Pain (associated with wound): tender to touch How does patient state this happened? pt unable to state how this happened Wound Number: 7 Location of the wound: right lower extremity Thickness: Full Size: 1.5cm x 1.8cm x 0.1cm Tunneling: none Undermining: none Sinus Tract: none Presence of Exudate: Serosanguineous Amount: Light Color: yellow, red Odor: None Periwound Skin Appearance: Erythema Wound edges: approximated Pain (associated with wound): tender to touch How does patient state this happened? pt unable to state how this happened Wound Number: 8 Location of the wound: right 5th toe Type of Wound: Unstageble Thickness: Full Size: 0.6cm x 2.0cm x 0.1cm Tunneling: none Undermining: none Sinus Tract: none Presence of Exudate: Serosanguineous Amount: Light Color: yellow, red Odor: None Periwound Skin Appearance: Erythema Wound edges: approximated Pain (associated with wound): tender to touch How does patient state this happened? pt unable to state how this happened Wound Number: 9 Location of the wound: right posterior calf Type of Wound: Unstageble Thickness: Full Size: 2.5cm x 2.2cm x 0.1cm Tunneling: none Undermining: none Sinus Tract: none Presence of Exudate: Serosanguineous Amount: Light Color: yellow, red Odor: None Periwound Skin Appearance: Erythema Wound edges: approximated Pain (associated with wound): tender to touch How does patient state this happened? pt unable to state how this happened Wound Number: 10 Location of the wound: gluteal cleft Type of Wound: Unstageble Thickness: Full Size: 17.0cm x 1.5cm x 0.1cm Tunneling: none Undermining: none Sinus Tract: none Presence of Exudate: Serosanguineous Amount: Moderate Color: yellow, red, black Odor: None Periwound Skin Appearance: Erythema Wound edges: approximated Pain (associated with wound): tender to touch How does patient state this happened? pt unable to state how this happened Wound Number: 11 Location of the wound: right great toe Type of Wound: stage 2 Thickness: Partial Size: 0.5cm x 0.3cm x 0.1cm Tunneling: none Undermining: none Sinus Tract: none Presence of Exudate: Serosanguineous Amount: Light Color: red Odor: None Periwound Skin Appearance: Erythema Wound edges: approximated Pain (associated with wound): tender to touch How does patient state this happened? pt unable to state how this happened Wound Number: 12 Location of the wound: left great toe medial Type of Wound: DTI Size: 4.5cm x 2.5cm x <0.1cm Tunneling: none Undermining: none Sinus Tract: none Presence of Exudate: none Amount: none Color: red, dark purple Odor: None Periwound Skin Appearance: Erythema Wound edges: approximated Pain (associated with wound): tender to touch How does patient state this happened? pt unable to state how this happened Wound Number: 13 Location of the wound: left 2nd toe Type of Wound: DTI Size: 1.5cm x 1.5cm x <0.1cm Tunneling: none Undermining: none Sinus Tract: none Presence of Exudate: none Amount: none Color: red, dark purple Odor: None Periwound Skin Appearance: Erythema Wound edges: approximated Pain (associated with wound): tender to touch How does patient state this happened? pt unable to state how this happened Wound Number: 14 Location of the wound: left 4th toe Type of Wound: DTI Size: 2.0cm x 8.0cm x <0.1cm Tunneling: none Undermining: none Sinus Tract: none Presence of Exudate: none Amount: none Color: red, dark purple Odor: None Periwound Skin Appearance: Erythema Wound edges: approximated Pain (associated with wound): tender to touch How does patient state this happened? pt unable to state how this happened Wound Number: 15 Location of the wound: left 5th toe Type of Wound: DTI Size: 1.5cm x 1.0cm x <0.1cm Tunneling: none Undermining: none Sinus Tract: none Presence of Exudate: none Amount: none Color: red, dark purple Odor: None Periwound Skin Appearance: Erythema Wound edges: approximated Pain (associated with wound): tender to touch How does patient state this happened? pt unable to state how this happened Patient has red satelitte area noted to bilateral breasts, abdominal folds, bilateral groins and behind bilateral knees at time of assessment. Musty odor noted at time of assessment. Surface the patient is resting on: XPRT SKIN PREVENTION RECOMMENDATION: 1. Pressure redistribution support surface as appropriate 2. Elevate heels 3. Remove boots/TEDS every shift and reapply 4. Head of bed 30 degrees as tolerated 5. Assess nutrition and hydration 6. Manage moisture 7. Avoid the use of containment devices while in bed 8. Use absorptive products on surfaces limit layers of linens on bed 9. Turn and reposition every 1-2 hours in bed and every 1 hour in chair as tolerated 10. Weight shifts every 15 minutes while up in chair 11. Offloading with pillows or device to keep heels elevated off bed 12. Monitor skin at least every shift 13. Inspect under medical devices twice a day WOUND TREATMENT RECOMMENDATIONS: Wheelchair cushion when oob. Heel raiser pro boots to bilateral lower extremities while in bed. Podiatry is already on consult await orders for BLE's Cleanse gluteal cleft with soap and water and apply calazime every shift and prn for soiling. Cleanse bilateral breasts, abdominal folds, bilateral groins and behind bilateral knees with soap and water pat area dry then apply nystatin powder every [address] abd pad for protection.
--- NOTE | 2019-09-07 05:13 | NUR ---
BP 89/36 (57) LEVOPHED TITRATED UP TO 16 MICS. PT SLEEPING/BODY RELAXED.
[2019-09-07 05:29] LABS: THYROID STIM HORMONE (HS) 5.95 uIU/ml (0.358-4.75)
[2019-09-07 05:43] LABS: ACT PARTIAL THROMBO TIME 60.3 SECONDS (20.0-32.1); INTERNATIONAL NORM RATIO 2.1 (2.0-3.5)
[2019-09-07 05:54] LABS: DIGOXIN 2.38 ng/ml (0.8-2.0)
[2019-09-07 06:13] LABS: HEMATOCRIT 40.8 % (37.0-47.0); HEMOGLOBIN 12.4 g/dl (12.0-16.0); MEAN CELL VOLUME 87.2 fl (81.0-99.0); MEAN CORPUSCULAR HGB 26.5 pg (27.0-31.0); MEAN CORPUSCULAR HGB CONC 30.4 g/dl (33.0-37.0); PLATELET COUNT AUTOMATED 110 10*3/uL (130-400); RED BLOOD COUNT 4.68 10*6/uL (4.10-5.10); RED CELL DISTRI WIDTH 18.8 % (0-14.5); WHITE BLOOD COUNT 34.7 10*3/uL (4.8-10.8)
--- NOTE | 2019-09-07 06:18 | NUR ---
LEVOPHED TO 17MICS. SISTER CALLS TO CHECK ON PT CONDITION.
--- NOTE | 2019-09-07 06:30 | NUR ---
DR GRAJEDA UPDATED ON PT CONDITION, LEVOPHED RATE, HR, AND VS. WELL DIG.LEVEL.
--- NOTE | 2019-09-07 06:38 | NUR ---
DR CHAVEZ NOTIFIED OF CONSULT.
[2019-09-07 07:25] LABS: VITAMIN D, 25-HYDROXY 34.1 ng/mL (30-100)
[2019-09-07 07:27] LABS: TOTAL CELLS COUNTED 100 #CELLS
[2019-09-07 07:28] LABS: PLATELET SUFFICIENCY LOW (NORMAL); POLYCHROMASIA SLIGHT; TOXIC GRANULATION SLIGHT; VACUOLATION OF NEUTROPHILS SLIGHT
--- NOTE | 2019-09-07 07:30 | NUR ---
PATIENT LETHARGIC. RESPONDS TO PAINFUL STIMULI. MUMBLES SOME AT TIMES. LUNGS CLEAR/DIMINISHED. POX 93% ON 3LNC. BLOOD PRESSURE 86/29 AT THIS TIME. LIJ MLC INTACE. LEVOPHED GTT INFUSING AT 17MIC/MIN. ABDOMEN SOFT/OBESE/HYPOACTIVE BS. TENDER WITH PALPATION. BILATERAL LOWER EXT. REDDENED/EDEMATOUS UP TO THIGHS. SEEPING NOTED.
--- NOTE | 2019-09-07 07:45 | NUR ---
VASOPRESSIN GTT STARTED AT 0.02U/MIN. BLOOD PRESSURE 94/37.
--- NOTE | 2019-09-07 08:35 | NUR ---
Dr. Ruvalcaba notified of wound care recommendations.
--- NOTE | 2019-09-07 08:45 | NUR ---
ON RETURN FROM CT SCAN A SKIN TEAR WAS NOTED TO LEFT ELBOW. 1 X 0.5 X 0.1 WITH BLOODY DRAINAGE AT THIS TIME. DRESSING APPLIED. NOTIFIED.
[2019-09-07 09:05] LABS: BILIRUBIN 1+ (NEGATIVE); BLOOD NEGATIVE (NEGATIVE); CLARITY CLOUDY (CLEAR); COLOR YELLOW (YELLOW); GLUCOSE NEGATIVE (NEGATIVE); KETONE NEGATIVE (NEGATIVE); LEUKO ESTERASE TRACE (NEGATIVE); NITRITE NEGATIVE (NEGATIVE); PH 5.5 (5.0-9.0); SPECIFIC GRAVITY 1.025 (1.005-1.030); UROBILINOGEN 0.2 E.U./dl (0.2-1.0)
[2019-09-07 09:10] LABS: WBC 0-2 wbc/hpf (0-5)
[2019-09-07 09:11] LABS: BACTERIA 2+
--- NOTE | 2019-09-07 09:43 | NUR ---
ANSWERING SERVICE NOTIFIED OF NEW CONSULT ORDER.
--- NOTE | 2019-09-07 09:45 | NUR ---
ANSWERING SERVICE NOTIFIED OF NEW CONSULT ORDER.
--- NOTE | 2019-09-07 09:50 | NUR ---
CALLED IN WITH NEW ORDERS.
--- NOTE | 2019-09-07 09:52 | NUR ---
RETURENED CALL. UPDATED ON PATIENT CONDITION. NO NEW ORDERS RECEIVED.
--- NOTE | 2019-09-07 10:30 | NUR ---
AT BEDSIDE. RIGHT RADIAL ARTLINE PLACED.
[2019-09-07 11:08] LABS: ABG BASE EXCESS -6.2 mmol/L (-2.0-2.0); ABG HCO3 20.1 mmol/l (22-26); ABG O2 SATURATION 97.2 % (95-97); ARTERIAL BLOOD GAS PCO2 45.2 mmHg (35-45); ARTERIAL BLOOD GAS PH 7.27 (7.35-7.45); ARTERIAL BLOOD GAS PO2 89.1 mmHg (80-90)
[2019-09-07] MEDS ORDERED: PROTONIX40 MG PO (11:28)
[2019-09-07] MEDS ORDERED: TOUJEO SOL300 UNIT/1 SQ (11:35)
--- NOTE | 2019-09-07 12:45 | NUR ---
PT IS UNRESPONSIVE AND UNABLE TO ANSWER QUESTIONS AT THIS TIME. CALLED SISTER AND ASKED HER ABOUT DISCHARGE PLANS. SHE STATES THAT PT HAS ADAMETLY REFUSED TO GO TO SKILLED CARE PREVIOUSLY. STATES SHE WAS PLACED PREVIOUSLY AT A PLACE IN [place] AFTER A STAY AT [facility], BUT ONLY STAYED ONE HOUR THEN LEFT. EXPLAINED THAT PT IS VERY SICK AND DOCTORS DON'T FEEL SHE WILL BE ABLE TO GO HOME WHEN DISCHARGED. STATES IF WE CAN CONVINCE HER SHE WOULD LIKE HER TO GO TO [facility]. BUT SHE IS NOT SURE THEY WILL TAKE HER INSURANCE, THAT WAS ALSO AN ISSURE BEFORE. WILL CONTINUE TO FOLLOW.
--- NOTE | 2019-09-07 15:00 | NUR ---
AT BEDSIDE. REQUESTED A BSG AND CVP READING. BSG 77 CVP 23.
--- NOTE | 2019-09-07 15:22 | NUR ---
SHANELL, Jack Frame Tender, and Dr. Collins met with the patients sister and son via conference call. After the conversation the patients family was agreeable to Hospice. PARENT EDUCATOR reached out to [facility], they are unable to provided a consult until tomorrow. PARENT EDUCATOR spoke with systems requirements planner PARENT EDUCATOR made referral to [facility] they are able to get someone to meet with the patients family at 6:30-7pm this evening. PARENT EDUCATOR faxed over the referral. -SHANELL Smith
--- NOTE | 2019-09-07 15:38 | NUR ---
DR ACOSTA AND PT SISTER NOTIFIED THAT [facility] HERE TONIGHT BETWEEN 6:30 AND 7 PM.
--- NOTE | 2019-09-07 15:45 | NUR ---
ULTRASOUND AT BEDSIDE. PATIENT YELLING OUT IN DISCOMFORT. SISTER AT BEDSIDE AND ASKED STAFF TO STOP. SHE STATED THAT HER AND THE SON HAVE DECIDED TO DO HOSPICE AND THEY WANT NO FURTHER TESTING DONE AT THIS TIME.
[2019-09-07 19:47] LABS: ABG HCO3 9.4 mmol/l (22-26); ABG O2 SATURATION 98.3 % (95-97); ARTERIAL BLOOD GAS PCO2 26.2 mmHg (35-45); ARTERIAL BLOOD GAS PO2 96.5 mmHg (80-90)
[2019-09-07 19:53] LABS: ABG BASE EXCESS -17.3 mmol/L (-2.0-2.0); ARTERIAL BLOOD GAS PH 7.182 (7.35-7.45)
--- NOTE | 2019-09-07 20:22 | NUR ---
DR SANDOVAL PAGED THROUGH ANSWERING SERVICE AT 2008 TO NOTIFY OF PT ABG RESULTS...AWAITING RETURN CALL. NIKOLAS CONNOR, FROM HOSPICE, OBTAINED RECOMMENDATIONS FROM THEIR DR CAMPBELL FOR PAIN/ANXIETY MANAGEMENT PER PT SISTER'S REQUEST. I NOTIFIED DR GRAJEDA. ORDERS RECEIVED.
--- NOTE | 2019-09-07 20:37 | NUR ---
DR SANDOVAL NOTIFIED OF ABG RESULTS. CONDITION, PLAN OF CARE/HOSPICE HERE, VS DISCUSSED. ORDERS RECEIVED.
--- NOTE | 2019-09-07 21:21 | NUR ---
ATIVAN GIVEN AT 2034 FOR RESTLESSNESS PER PT SISTER REQUEST APPEARS TO BE EFFECTIVE.
[2019-09-08] VITALS (58 sets, daily range): BP systolic 98–131; BP diastolic 42–79
--- NOTE | 2019-09-08 00:42 | NUR ---
MORPHINE GIVEN AND COMPLETE BATH AND BED LINEN CHANGE WAS DONE AT 2350. MORPHINE WAS EFFECTIVE.
--- NOTE | 2019-09-08 00:49 | NUR ---
CONTINUED ATTEMPTS AT MOUTH CARE DONE WITH SOFT DAMP WET WASHCLOTH AND SOFT TOOTHETTE. PT'S LIPS CONTINUE TO BLEED EASILY.
--- NOTE | 2019-09-08 03:23 | NUR ---
ENGLISHRICHARD Dan [id number] Please refer to the physician's history and physical for past medical history, comorbid conditions, and allergies. Diagnosis: SEPTIC SHOCK PNEUMONIA Zhen Score: 10,HIGH RISK WOUND DESCRIPTIONS: Wound Number: 16 Location of the wound: left elbow Type of wound: skin tear Thickness: Partial Size: 2.0cm x 1.5cm x 0.1cm Tunneling: none Undermining: none Sinus Tract: none Presence of Exudate: Serosanguineous Amount: Light Color: Red Odor: None Periwound Skin Appearance: Normal Wound edges: approximated Pain (associated with wound): none at time of assessment How does patient state this happened? pt unable to state how this happened Surface the patient is resting on: XPRT SKIN PREVENTION RECOMMENDATION: 1. Pressure redistribution support surface as appropriate 2. Elevate heels 3. Remove boots/TEDS every shift and reapply 4. Head of bed 30 degrees as tolerated 5. Assess nutrition and hydration 6. Manage moisture 7. Avoid the use of containment devices while in bed 8. Use absorptive products on surfaces limit layers of linens on bed 9. Turn and reposition every 1-2 hours in bed and every 1 hour in chair as tolerated 10. Weight shifts every 15 minutes while up in chair 11. Offloading with pillows or device to keep heels elevated off bed 12. Monitor skin at least every shift 13. Inspect under medical devices twice a day WOUND TREATMENT RECOMMENDATIONS: Continue skin tear guidelines to left elbow.
--- NOTE | 2019-09-08 04:38 | NUR ---
Upon discharge recommend patient to follow up for wound care in outpatient setting continue current wound care orders at discharging facility.
--- NOTE | 2019-09-08 04:45 | NUR ---
MORPHINE GIVEN AT 0430 FOR MOANING AND GRIMACING WAS EFFECTIVE.
--- NOTE | 2019-09-08 05:00 | NUR ---
VASOPRESSIN WAS TITRATED TO 0.02 AT 0300 AND TO 0.01 AT 0400. MAP HAS REMAINED 70'S... VASOPRESSIN DC'D AT 0500.
[2019-09-08 05:16] LABS: ALBUMIN 1.7 gm/dl (3.1-4.5); CREATININE 3.89 mg/dL (0.55-1.02); PHOSPHOROUS 5.1 mg/dL (2.5-4.9); POTASSIUM 4.4 mmol/L (3.5-5.1); TOTAL PROTEIN 6.9 gm/dL (6.4-8.2)
--- NOTE | 2019-09-08 06:09 | NUR ---
VASOPRESSIN REMAINS OFF AND LEVOPHED TITRATED DOWN TO 18 MCG/MIN. BP 110/53 MAP 72.
[2019-09-08 06:11] LABS: HEMATOCRIT 37.6 % (37.0-47.0); HEMOGLOBIN 11.8 g/dl (12.0-16.0); MEAN CELL VOLUME 85.3 fl (81.0-99.0); MEAN CORPUSCULAR HGB 26.8 pg (27.0-31.0); MEAN CORPUSCULAR HGB CONC 31.4 g/dl (33.0-37.0); MEAN PLATELET VOLUME 11.8 fl (9.6-12.3); NUCLEATED RED BLOOD CELL 0.1 10*3/uL (0.0-0.0); NUCLEATED RED BLOOD CELL 0.2 % (0.0-0.0); PLATELET COUNT AUTOMATED 128 10*3/uL (130-400); RED BLOOD COUNT 4.41 10*6/uL (4.10-5.10); RED CELL DISTRI WIDTH 18.8 % (0-14.5); WHITE BLOOD COUNT 26.3 10*3/uL (4.8-10.8)
[2019-09-08 06:28] LABS: INTERNATIONAL NORM RATIO 1.4 (2.0-3.5)
--- NOTE | 2019-09-08 07:30 | NUR ---
PATIENT UNRESPONSIVE AT THIS TIME. NO VERBAL RESPONSES. MEDICATED WITH MORPHINE SULFATE PER PRN ORDER FOR COMFORT TO REPOSITION. TEMPERATURE 102.9 MEDICATED WITH TYLENOL PER PRN ORDER. LUNGS CLEAR. POX 87% ON 4LNC. INCREASED O2 TO 40% VENTURI. LEVOPHED INFUSING.
[2019-09-08 07:45] LABS: PLATELET SUFFICIENCY LOW (NORMAL); TOTAL CELLS COUNTED 100 #CELLS; TOXIC GRANULATION MODERATE
--- NOTE | 2019-09-08 09:26 | NUR ---
CUE WORKER received call from [facility]. She stated a RN would be back in to talk to the family today around 2/2:30. CUE WORKER spoke with RN-Mireya. CUE WORKER also spoke with the patients sister Kailey about this and she understood. -SHANELL Smith
[2019-09-08 10:36] LABS: ABG BASE EXCESS -3.3 mmol/L (-2.0-2.0); ABG HCO3 22.4 mmol/l (22-26); ABG O2 SATURATION 96.5 % (95-97); ARTERIAL BLOOD GAS PCO2 50.7 mmHg (35-45); ARTERIAL BLOOD GAS PH 7.282 (7.35-7.45); ARTERIAL BLOOD GAS PO2 93.2 mmHg (80-90)
--- NOTE | 2019-09-08 10:59 | NUR ---
SPEECH PATHOLOGY Nursing screen completed. Speech pathology services are not indicated at this time. Patient's condition is poor and hospice has been consulted. SHWETA RODRIGUEZ MSCCC-CONTACT LENS MANUFACTURER
--- NOTE | 2019-09-08 11:30 | NUR ---
TEMPERATURE 101.9 MEDICATED WITH TYLENOL PER PRN ORDER. WHEN PATIENT REPOSITIONED SHE DID NOT MOAN OR MAKE ANY RESPONSES.
--- NOTE | 2019-09-08 12:00 | NUR ---
HOSPICE TO MEET WITH FAMILY AGAIN TODAY BETWEEN 2-230. SON IS DUE TO ARRIVE TODAY.
--- NOTE | 2019-09-08 14:31 | NUR ---
PATIENT DISCHARGED AT THIS TIME FOR INPATIENT HOSPICE. ALL FAMILY AT BEDSIDE. [facility] NURSE HERE.
== END 2019-09-08 14:31 | disposition hospice, home (50) | DRG 871 ==
LOC: ED 16:25 → EDHOLD 18:33 → ICCU 18:33
PROVIDERS: Emergency Medicine; Internal Medicine Critical Care Medicine; Internal Medicine Nephrology; Student in an Organized Health Care Education/Training Program; ADMIT Family Medicine
PROC: B548ZZA Ultrasonography of Superior Vena Cava, Guidance (ICD-10-PCS; principal; 2019-09-07)
PROC: 02HV33Z Insertion of Infusion Device into Superior Vena Cava, Percutaneous Approach (ICD-10-PCS; principal; 2019-09-07)
PROC: 03HY32Z Insertion of Monitoring Device into Upper Artery, Percutaneous Approach (ICD-10-PCS; 2019-09-07)
PROC: 4A133J1 Monitoring of Arterial Pulse, Peripheral, Percutaneous Approach (ICD-10-PCS; 2019-09-07)
PROC: 4A133B1 Monitoring of Arterial Pressure, Peripheral, Percutaneous Approach (ICD-10-PCS; 2019-09-07)
DX: A41.9 Sepsis, unspecified organism (principal); J18.9 Pneumonia, unspecified organism; E43 Unspecified severe protein-calorie malnutrition; R65.21 Severe sepsis with septic shock; N17.0 Acute kidney failure with tubular necrosis; G93.41 Metabolic encephalopathy; J96.01 Acute respiratory failure with hypoxia; R17 Unspecified jaundice; L03.115 Cellulitis of right lower limb; L03.116 Cellulitis of left lower limb; I50.22 Chronic systolic (congestive) heart failure; D68.59 Other primary thrombophilia; I13.0 Hypertensive heart and chronic kidney disease with heart failure and stage 1 through stage 4 chronic kidney disease, or unspecified chronic kidney disease; A04.72 Enterocolitis due to Clostridium difficile, not specified as recurrent; J91.8 Pleural effusion in other conditions classified elsewhere; Z68.42 Body mass index [BMI] 45.0-49.9, adult; L97.519 Non-pressure chronic ulcer of other part of right foot with unspecified severity; F32.9 Major depressive disorder, single episode, unspecified; E11.649 Type 2 diabetes mellitus with hypoglycemia without coma; Z66 Do not resuscitate; Z51.5 Encounter for palliative care; E11.621 Type 2 diabetes mellitus with foot ulcer; L97.509 Non-pressure chronic ulcer of other part of unspecified foot with unspecified severity; E66.01 Morbid (severe) obesity due to excess calories; I48.0 Paroxysmal atrial fibrillation; D64.9 Anemia, unspecified; E11.22 Type 2 diabetes mellitus with diabetic chronic kidney disease; N18.3 Chronic kidney disease, stage 3 (moderate); I87.2 Venous insufficiency (chronic) (peripheral); L89.890 Pressure ulcer of other site, unstageable; Z88.1 Allergy status to other antibiotic agents; Z88.5 Allergy status to narcotic agent; Z88.0 Allergy status to penicillin; Z82.49 Family history of ischemic heart disease and other diseases of the circulatory system; Z84.1 Family history of disorders of kidney and ureter; Z88.2 Allergy status to sulfonamides

== ENCOUNTER 2019-09-08 15:03 | Inpatient (IN) | payer OTHER ==
[~2019-09-08] VITALS: Ht 165.1 cm; Wt 126.8 kg
[~2019-09-08 15:03] MED LIST changes: +ASPIRIN LOW DOS81 MG PO; +DIGOXIN125 MCG PO; +FUROSEMIDE40 MG PO; +K-TAB20 MEQ PO; +LORAZEPAM0.5 MG PO; +METOLAZONE5 MG PO; +NYSTATIN OINTME30 GM T; +PANTOPRAZOLE SO40 MG PO; +PROTONIX40 MG PO; +TOUJEO SOL300 UNIT/1 SQ; +VANCOMYCIN HCL250 MG PO
[2019-09-08 15:13] VITALS: BP 126/56
--- NOTE | 2019-09-08 15:13 | NUR ---
A 64yr old female, admitted to [facility], under the services of LEYDA Santoyo DO with a diagnosis of SEPTIC SHOCK. Chief complaint is discharged and readmitted as a Hospice patient.
--- NOTE | 2019-09-08 15:20 | NUR ---
PATIENT HAS 16 WOUNDS PREVIOUSLY DOCUMENTED. PATIENT WAS DISCHARGED AND READMITTED UNDER HOSPICE CARE. FAMILY DID NOT WANT ANY MEASUREMENTS OR PICTURES RETAKEN. ALL WOUNDS REMAIN THE SAME PREVIOUS DOCUMENTATION.
--- NOTE | 2019-09-08 15:41 | NUR ---
FAMILY REQUEST PATIENT MEDICATED WITH MORPHINE FOR PATIENT COMFORT. MEDICATED WITH MORPHINE SULFATE 1MG IV PER PRN ORDER. LEVOPHED AND IVF STOPPED AT THIS TIME. FAMILY AT BEDSIDE.
[2019-09-08 16:00] VITALS: BP 73/34
--- NOTE | 2019-09-08 19:01 | NUR ---
MEDICATED WITH MORPHINE SULFATE 1MG IV PER PRN ORDER PER FAMILY REQUEST FOR COMFORT.
[2019-09-08 20:00] VITALS: BP 74/34
--- NOTE | 2019-09-08 20:15 | NUR ---
PT RESTING IN BED WITH EYES CLOSED, UNRESPONSIVE AT THIS TIME. RESP NONLABORED ON 40% VENTURI. MORPHINE GIVEN EARLIER FOR PAIN/DISCOMFORT WAS EFFECTIVE. MEDICATED WITH ATIVAN PER FAMILY REQUEST FOR COMFORT. LEFT IJ MLC PATENT. HEPLOCKS PATENT. SIMPSON PATENT FOR DARK ALBER URINE. FAMILY AT BEDSIDE.
--- NOTE | 2019-09-08 20:15 | NUR ---
MEDICATED WITH ATIVAN PER FAMILY REQUEST TO KEEP PT COMFORTABLE.
[2019-09-09] VITALS: BP 74/34
--- NOTE | 2019-09-09 | NUR ---
PT RESTING IN BED WITH EYES CLOSED. ATIVAN AND MORPHINE BEING GIVEN FOR COMFORT, EFFECTIVE. FAMILY AT BEDSIDE.
[2019-09-09 04:00] VITALS: BP 82/36
[2019-09-09 08:00] VITALS: BP 109/61
--- NOTE | 2019-09-09 08:00 | NUR ---
FAMILY ASKED TO STEP OUT FOR A MINUTE FOR GENERAL NURSING CARE, PT UNSRESPONSIVE, TO VOICE, SHE DOES COUGH AND GAG WITH ORAL CARE, MOASN WHEN TURNED FOR INCONT CARE, ART LINE AND PERIPHERAL HL REMOVED AND DRSG APPLIED, SIMPSON SECURE, CENTRAL LINE DRSG CHANGED PER POLICY, PT WITH GENERALIZED EDEMA TO NIPPLES, ARMS WEEPING BUT LOWER LEGS WEEPING MORE, LOWER LIMBS GROSSLY SWOLLEN, DISCOLORED, HEELS DARK AND DRAINING SERIOUS, HEELS ELEVATED OFF BED, ALL BONY POINTS CHECKED FOR IMPAIRED CIRCULATION, PT OVERALL IN POOR CONDITION, REMAINS A COMFORT CARE, FAMILY WANTS MINIMALL INTERUPTIONS TO HER REST
--- NOTE | 2019-09-09 10:00 | NUR ---
PT WITH 16 WOUNDS, FAMILY IS REFUSING ROUTINE Q2 TURNING, REFUSING WOUND DRSG CHANGES/CARE
--- NOTE | 2019-09-09 10:20 | NUR ---
morphine/aticvan as ordered q2 straight pt remains unresponvie, slight moan with care
--- NOTE | 2019-09-09 11:48 | NUR ---
PT [facility]. WILL CONTINUE TO FOLLOW.
[2019-09-09 16:00] VITALS: BP 96/44
--- NOTE | 2019-09-09 19:00 | NUR ---
transferred to 532 via bed, pt remains unresponsive, family aware of transfer
--- NOTE | 2019-09-09 20:35 | NUR ---
SPOKE WITH PRIYANKA FLOOR INSTALLATION MECHANIC REGARDING 2 FAMILY MEMBERS REQUESTINGING TO SPEND NIGHT WITH PATIENT. PATIENT IN POOR CONDITION. APPROVAL RECEIVED.
--- NOTE | 2019-09-09 21:00 | NUR ---
FAMILY REQUESTING SIMPSON CATHETER TO BE LEFT IN.
--- NOTE | 2019-09-10 00:27 | NUR ---
PATIENT'S FAMILY REFUSING MORPHINE/ATIVAN AT THIS TIME. FAMILY STATED PATIENT RESTING QUIETLY AND DOES NOT NEED MEDICATION AT THIS TIME.
--- NOTE | 2019-09-10 02:05 | NUR ---
FAMILY STATED THAT HER SISTER IS RESTING COMFORTABLY AND DOES NOT NEED MEDICATED AT THIS TIME.
--- NOTE | 2019-09-10 07:31 | NUR ---
Shift chart check completed.
--- NOTE | 2019-09-10 09:44 | NUR ---
PATIENT MEDICATED WITH MORPHINE & ATIVAN PER REQUEST OF FAMILY FOR SLIGHT RESTLESSNESS & OCC COUGH. SIMPSON PATENT FOR DK ALBER URINE. MULTIPLE WOUNDS VISIBLE BUT PER FAMILY DO NOT WORRY ABOUT THEM THAT JUST SEEMS TO IRRITATE HER. PATIENT IS HOSPICE
--- NOTE | 2019-09-10 10:19 | NUR ---
PATIENT CALMER PER FAMILY AT BEDSIDE
--- NOTE | 2019-09-10 12:14 | NUR ---
MEDICATED WITH MORPHINE & ATIVAN PER FAMILY REQUEST FOR MORE LABORED BREATHING. NURSE SEES SLOW EASY RESP WITH RATE @ 10-12. FAMILY REQUESTED NO BP OR REPOSITIONING
--- NOTE | 2019-09-10 12:35 | NUR ---
RESTING BETTER PER FAMILY
--- NOTE | 2019-09-10 13:37 | NUR ---
PT REMAINS UNDER HOSPICE CARE.
--- NOTE | 2019-09-10 14:08 | NUR ---
ATIVAN & MORPHINE GIVEN FOR INCREASE IN LABORED/GASPING RESP. PATIENT LINEN CHANGED & REPOSITIONED. FAMILY HERE AND AGREED WITH TURN. SIMPSON CONTINUES TO LEAK AROUND BALLOON. MULTIPLE WOUNDS THAT FAMILY DOES NOT WANT TREATED ALL SEEPING SEROUS DRAINAGE. HOB ELEVATED. VENTURI MASK REMOVED ANDF PT PLACED ON NC3L PER FAMILY REQUEST AFTER SPEAKING WITH HOSPICE.
--- NOTE | 2019-09-10 17:02 | NUR ---
MORPHINE & ATIVAN GIVEN FOR GASPING RESP. FAMILY AT BEDSIDE
--- NOTE | 2019-09-10 17:54 | NUR ---
ONE CALL CALLED - CITY SECRETARY Dolores GARCIA & CALLED ALONG WITH [facility] WHO ARE ALREADY HERE AFTER CALLED AT [phone]. FAMILY AT BEDSIDE
--- NOTE | 2019-09-10 18:08 | NUR ---
FAMILY HERE - HOSPICE CLEANING UP PATIENT - MARC-MLC REMOVED - SIMPSON REMOVED
--- NOTE | 2019-09-10 21:00 | NUR ---
SAILING OFFICER MADE AWARE THAT PATIENT IS GOING TO [facility] AND THEY ARE BEING MADE AWARE THAT SHE IS READY TO BE PICKED UP
--- NOTE | 2019-09-10 21:35 | NUR ---
[facility] IN TO TRANSPORT PATIENT ON BEHALF OF [facility]
== END 2019-09-10 17:34 | disposition expired | DRG 871 ==
LOC: ICCU 15:03 → 5E 15:03
PROVIDERS: ADMIT Internal Medicine
DX: A41.9 Sepsis, unspecified organism (principal); R65.21 Severe sepsis with septic shock; J18.9 Pneumonia, unspecified organism; G93.41 Metabolic encephalopathy; E43 Unspecified severe protein-calorie malnutrition; J96.01 Acute respiratory failure with hypoxia; J96.02 Acute respiratory failure with hypercapnia; A04.72 Enterocolitis due to Clostridium difficile, not specified as recurrent; R17 Unspecified jaundice; L03.115 Cellulitis of right lower limb; L03.116 Cellulitis of left lower limb; I50.22 Chronic systolic (congestive) heart failure; I13.0 Hypertensive heart and chronic kidney disease with heart failure and stage 1 through stage 4 chronic kidney disease, or unspecified chronic kidney disease; D68.59 Other primary thrombophilia; Z68.42 Body mass index [BMI] 45.0-49.9, adult; Z51.5 Encounter for palliative care; L89.90 Pressure ulcer of unspecified site, unspecified stage; E11.622 Type 2 diabetes mellitus with other skin ulcer; L98.499 Non-pressure chronic ulcer of skin of other sites with unspecified severity; E11.621 Type 2 diabetes mellitus with foot ulcer; L97.519 Non-pressure chronic ulcer of other part of right foot with unspecified severity; I87.2 Venous insufficiency (chronic) (peripheral); E66.01 Morbid (severe) obesity due to excess calories; D64.9 Anemia, unspecified; N18.3 Chronic kidney disease, stage 3 (moderate); E11.22 Type 2 diabetes mellitus with diabetic chronic kidney disease; I48.91 Unspecified atrial fibrillation; F32.9 Major depressive disorder, single episode, unspecified; Z85.42 Personal history of malignant neoplasm of other parts of uterus; Z91.81 History of falling; Z90.710 Acquired absence of both cervix and uterus; Z98.891 History of uterine scar from previous surgery; Z98.49 Cataract extraction status, unspecified eye; Z82.49 Family history of ischemic heart disease and other diseases of the circulatory system; Z84.1 Family history of disorders of kidney and ureter; Z88.0 Allergy status to penicillin; Z88.2 Allergy status to sulfonamides; Z88.1 Allergy status to other antibiotic agents; Z88.5 Allergy status to narcotic agent; Z88.8 Allergy status to other drugs, medicaments and biological substances; Z91.048 Other nonmedicinal substance allergy status